=== PATIENT | female | born 1980 | race Native Hawaiian/Other Pacific Islander ===

== ENCOUNTER 2016-11-15 11:11 | Emergency (ER) | payer OTHER ==
[2016-11-15 11:15] VITALS: BMI 30.7
[2016-11-15 11:17] VITALS: PULSE 66; TEMP 98.5; O2SAT 99
[2016-11-15 11:25] VITALS: BP 118/70; RESP 20
--- NOTE | 2016-11-15 11:31 | ED PDOC ---
HPI: Female Pain Time Seen by Provider: 11/15/16 11:31 Chief Complaint (Nursing): Female Genitourinary Chief Complaint (Provider): with spotting History Per: Patient Additional Complaint(s): 36-year-old female presents to emergency department for evaluation of vaginal spotting that started yesterday. Patient is currently and she is approximately 10 weeks. Yesterday patient took her first yoga class and noticed slight spotting right after the class with no pain. Patient had additional episode of spotting last night and thrn woke up this morning with additional spotting. Patient called her education coordinator and was told to come to ED. Patient denies abdominal pain, no fever or chills, no dysuria or hematuria. This is patient's first , she has no children and she denies any previous miscarriages or ectopic pregnancies. Past Medical History Reviewed: Historical Data, Nursing Documentation, Vital Signs Vital Signs: Last Vital Signs Temp 98.5 F 11/15/16 11:23 Pulse 66 11/15/16 11:23 Resp 20 11/15/16 11:23 BP 118/70 11/15/16 11:23 Pulse Ox 99 11/15/16 11:23 - Medical History PMH: No Chronic Diseases Other PMH: - Surgical History Surgical History: No Surg Hx - Family History Family History: States: No Known Family Hx - Living Arrangements Living Arrangements: With Family - Social History Current smoker - smoking cessation education provided: No Alcohol: None Drugs: Denies - Home Medications Home Medications: Ambulatory Orders Medication Instructions Recorded Omeprazole [Omeprazole] 40 mg PO DAILY 08/18/13 Famotidine [Pepcid] 20 mg PO BID #28 tab 08/19/13 - Allergies Allergies/Adverse Reactions: Allergies Allergy/AdvReac Type Severity Reaction Status Date / Time No Known Allergies Allergy Verified 11/15/16 11:22 Review of Systems ROS Statement: Except As Marked, All Systems Reviewed And Found Negative Constitutional: Negative for: Fever Gastrointestinal: Negative for: Nausea, Vomiting Genitourinary Female: Positive for: Vaginal Bleeding (spotting since last night with no pain, currently 10 weeks ) Physical Exam - Reviewed Nursing Documentation Reviewed: Yes Vital Signs Reviewed: Yes - Physical Exam Appears: Positive for: Well Skin: Negative for: Rash Eye Exam: Positive for: Normal appearance Cardiovascular/Chest: Positive for: Regular Rate, Rhythm Respiratory: Positive for: Normal Breath Sounds Gastrointestinal/Abdominal: Positive for: Normal Exam, Soft. Negative for: Tenderness, Distended, Guarding, Rebound Back: Negative for: L CVA Tenderness, R CVA Tenderness Extremity: Positive for: Normal ROM. Negative for: Pedal Edema Neurologic/Psych: Positive for: Alert, Oriented - Laboratory Results Result Diagrams: 11/15/16 12:15 11/15/16 12:15 Urine POC: Positive Urine dip results: Positive for: Blood (small). Negative for: Leukocyte Esterase, Nitrate, Ketones, Glucose, Bilirubin, Protein - ECG O2 Sat by Pulse Oximetry: 99 Pulse Ox Interpretation: Normal - Other Rad OB US X-Ray: Read By Radiologist X-Ray Interpretation: see below Medical Decision Making Medical Decision Makin36 year old female, currently 10 weeks with vaginal spotting since yesterday Plan: CBC CMP Beta quant TV OB US Urine dip OB is Dr. Pierce, who is aware that patient is in ED. Patient's blood type is B+ as per labs obtained in Dr. Pierce's office at end of October. US: IMPRESSION: Single live intrauterine gestation of approximately 10 weeks 0 days gestational age. No subchorionic hemorrhage. Two small posterior uterine fibroids. Cervix closed. Otherwise unremarkable, FHR 168. Patient is aware of diagnostic testing results, all questions answered. Case was further discussed with Dr. Pierce who is aware of ultrasound results and states to discharge patient and have her follow-up in his office in 1-2 days. Patient was advised to get plenty of rest and avoid shiny with activity. She was instructed to follow up in 1-[address] Pierce in his office and is aware she can return to ED any time if acutely worse. Disposition - Clinical Impression Clinical Impression: Threatened - Patient ED Disposition Is Patient to be Admitted: No Counseled Patient/Family Regarding: Studies Performed, Diagnosis, Need For Followup - Disposition Referrals: Gil Pierce DO [Family Provider] - Disposition: Routine/Home Disposition Time: 13:51 Condition: STABLE Additional Instructions: Rest as much possible and drink plenty of fluids. No heavy lifting or strenuous activity. Refrain from intercourse. Follow-up in one to [address] Pierce or return any time if acutely worse. Instructions: Threatened Miscarriage (ED) Results - Lab Results Lab Results: 11/15/16 11/15/16 12:15 12:15 WBC 8.2 RBC 5.24 H Hgb 15.5 Hct 45.9 MCV 87.7 MCH 29.5 MCHC 33.6 RDW 13.7 Plt Count 216 MPV 8.7 Neut % (Auto) 66.4 Lymph % (Auto) 23.6 Tillman % (Auto) 7.8 Eos % (Auto) 1.4 Baso % (Auto) 0.8 Neut # 5.4 Lymph # 1.9 Tillman # 0.6 Eos # 0.1 Baso # 0.1 Sodium 142 Potassium 4.3 Chloride 105 Carbon Dioxide 24 Anion Gap 18 BUN 6 L Creatinine 0.5 L Est GFR ( Amer) > 60 Est GFR (Non-Af Amer) > 60 Random Glucose 82 Calcium 9.9 Total Bilirubin 0.5 AST 22 ALT 26 Alkaline Phosphatase 49 Total Protein 8.2 Albumin 4.8 Globulin 3.4 Albumin/Globulin Ratio 1.4 Beta HCG, Quant > 92183.00
[2016-11-15 12:27] LABS: BASO # 0.1 K/uL (0.0-0.2); BASO % 0.8 % (0.0-2.0); EOS # 0.1 K/uL (0.0-0.7); EOS % 1.4 % (0.0-4.0); HEMATOCRIT 45.9 % (34.0-47.0); LYMPH # 1.9 K/uL (1.0-4.3); LYMPH % 23.6 % (20.0-40.0); MEAN CELL VOLUME 87.7 fl (81.0-99.0); MEAN CORPUSCULAR HEMOGLOBIN 29.5 pg (27.0-31.0); MEAN CORPUSCULAR HGB CONC 33.6 g/dL (33.0-37.0); MEAN PLATELET VOLUME 8.7 fl (7.2-11.7); MONO # 0.6 K/uL (0.0-0.8); MONO % 7.8 % (0.0-10.0); NEUT # 5.4 K/uL (1.8-7.0); NEUT % 66.4 % (50.0-75.0); RED CELL DISTRIBUTION WIDTH 13.7 % (11.5-14.5); WHITE BLOOD COUNT 8.2 K/uL (4.8-10.8)
[2016-11-15 12:40] LABS: ALB/GLOB RATIO 1.4 (1.0-2.1); ALKALINE PHOSPHATASE 49 U/L (38-126); ALT/SGPT 26 U/L (9-52); AST/SGOT 22 U/L (14-36); BILIRUBIN,TOTAL 0.5 mg/dl (0.2-1.3); BLOOD UREA NITROGEN 6 mg/dl (7-17); CALCIUM 9.9 mg/dL (8.4-10.2); CARBON DIOXIDE 24 mmol/L (22-30); CHLORIDE 105 mmol/L (98-107); GFR AFRICAN-AMERICAN > 60; GLUCOSE,RANDOM 82 mg/dL (65-105); POTASSIUM 4.3 MMOL/L (3.6-5.0); SODIUM 142 mmol/l (132-148); TOTAL PROTEIN 8.2 G/DL (6.3-8.2)
--- NOTE | 2016-11-15 13:51 | US ---
PROCEDURE: OB Pelvic Ultrasound HISTORY: 10 weeks, spotting COMPARISON: None available. FINDINGS: UTERUS: Single Live intrauterine gestation. CRL equivalent to 10 weeks 4 days gestatioin Gestational sac diameter equivalent to 9 weeks 2 days gestation age (Ultrasound estimated): 10 weeks 0 days Date of delivery (Ultrasound estimated) : 06/13/2017 Heart rate: 168 bpm. Josefa-gestational hemorrhage: None. 5 mm yolk sac. Uterus measures 12.0 x 7.0 x 9.2 cm. Two posterior intramural fibroids, 1.1 x 1.0 x 0.8 cm and 2.0 x 1.7 x 1.7 Cm. CERVIX: Long and closed. No cervical abnormality seen. RIGHT OVARY: Not visualized. LEFT OVARY: Measures 3.3 x 1.8 x 2.4 cm. No mass. Normal flow. FREE FLUID: None. OTHER FINDINGS: None. IMPRESSION: Single live intrauterine gestation of approximately 10 weeks 0 days gestational age. No subchorionic hemorrhage. Two small posterior uterine fibroids. Cervix closed. Otherwise unremarkable.
== END 2016-11-15 14:14 | disposition home or self-care (01) ==
LOC: H.ER 11:11
DX: O26.853 Spotting complicating pregnancy, third trimester (principal); Z3A.10 10 weeks gestation of pregnancy; D25.9 Leiomyoma of uterus, unspecified

== ENCOUNTER → 2017-04-06 | Emergency (ER) | payer OTHER ==
[~2017-04-06] MED LIST: Alum-Mag Hydrox-Simethicone Susp (30 mL) PO ONE
[2017-04-06 16:34] VITALS: BMI 32.4
[2017-04-06 17:01] LABS: HEMATOCRIT 40.5 % (34.0-47.0); MEAN CELL VOLUME 89.2 fl (81.0-99.0); MEAN CORPUSCULAR HEMOGLOBIN 29.5 pg (27.0-31.0); MEAN CORPUSCULAR HGB CONC 33.1 g/dL (33.0-37.0); RED CELL DISTRIBUTION WIDTH 13.6 % (11.5-14.5); WHITE BLOOD COUNT 11.8 K/uL (4.8-10.8)
[2017-04-06 17:16] LABS: ALB/GLOB RATIO 1.3 (1.0-2.1); ALKALINE PHOSPHATASE 76 U/L (38-126); ALT/SGPT 23 U/L (9-52); AST/SGOT 16 U/L (14-36); BILIRUBIN,TOTAL 0.3 mg/dl (0.2-1.3); BLOOD UREA NITROGEN 6 mg/dl (7-17); CALCIUM 9.3 mg/dL (8.4-10.2); CARBON DIOXIDE 21 mmol/L (22-30); CHLORIDE 107 mmol/L (98-107); GFR AFRICAN-AMERICAN > 60; GLUCOSE,RANDOM 99 mg/dL (65-105); POTASSIUM 3.9 MMOL/L (3.6-5.0); SODIUM 139 mmol/l (132-148); TOTAL PROTEIN 7.2 G/DL (6.3-8.2)
== END | disposition home or self-care (01) ==
LOC: H.EROB2 15:54
DX: O99.613 Diseases of the digestive system complicating pregnancy, third trimester (principal); K21.9 Gastro-esophageal reflux disease without esophagitis; Z3A.31 31 weeks gestation of pregnancy

== ENCOUNTER 2017-05-28 00:21 | Inpatient (IN) | payer OTHER ==
[2017-05-28 01:23] VITALS: BMI 32.9
[2017-05-28] MEDS: Lactated Ringer's 1,000 ML IV SCH ×3 (01:30→12:30)
[2017-05-28] MEDS ORDERED: Penicillin G Potassium 5 MU in Sodium Chloride 0.9% 50 ML IVPB ONE (01:30)
[2017-05-28 01:46] LABS: BASO # 0.1 K/uL (0.0-0.2); BASO % 0.6 % (0.0-2.0); EOS # 0.1 K/uL (0.0-0.7); EOS % 1.3 % (0.0-4.0); HEMATOCRIT 42.4 % (34.0-47.0); MEAN CELL VOLUME 88.9 fl (81.0-99.0); MEAN CORPUSCULAR HEMOGLOBIN 30.2 pg (27.0-31.0); MEAN PLATELET VOLUME 9.5 fl (7.2-11.7); MONO # 0.6 K/uL (0.0-0.8); MONO % 6.1 % (0.0-10.0); NEUT # 6.8 K/uL (1.8-7.0); NRBC % 0.1 % (0.0-0.0); RED CELL DISTRIBUTION WIDTH 13.8 % (11.5-14.5); WHITE BLOOD COUNT 9.5 K/uL (4.8-10.8)
[2017-05-28] MEDS ORDERED: Oxytocin 30 UNITS in Sodium Chloride 0.9% 500 ML IV ONE ×3 (06:00→17:30)
[2017-05-28] MEDS ORDERED: Bupivacaine HCl 0.25% PF (10 ml) Inj ONE ×2 (10:04→14:33)
[2017-05-28] MEDS ORDERED: Fentanyl/Bupivacaine HCl 250 ML EPI ONE (10:04)
--- NOTE | 2017-05-28 12:28 | OBPN ---
Datetime: 05/28/2017 11:24 IP Progress Impression: Normal progression of labor; Reassuring heart rate IP Procedures: Sterile Vag Exam IP Progress Plan: Continue present management; Augmentation Membranes, Provider: Ruptured Contraction Comments Provider: q3min FHR - Baseline A Provider: 130s-140s IP Progress Note Comment: Pt comfortable s/p epidural. Both MWB/FWB reassuring at this time. Cont current management. Vital Signs Provider: Reviewed; Within Normal Limits NICHD Accel Fetus A IP Provider: 15X15 FHR Category Provider Fetus A: Category I NICHD Variability Prov Fetus A: Moderate 6-25bpm Dilatation, Provider: 3-4 Effacement, Provider: 100 Station, Provider: -2 NICHD Decel Fetus A IP Provider: None
--- NOTE | 2017-05-28 12:30 | OBADHP ---
Datetime: 05/28/2017 11:24 FHR - Baseline A Provider: 130s-140s RAMBO Variability Prov Fetus A: Moderate 6-25bpm NICHD Accel Fetus A IP Provider: 15X15 FHR Category Provider Fetus A: Category I NICHD Decel Fetus A IP Provider: None Datetime: 05/28/2017 03:27 Pelvic Type - PN: Adequate Extremities - PN: Normal Abdomen - PN: Normal Back - PN: Normal Breast - PN: Normal Lungs - PN: Normal Heart - PN: Normal Thyroid - PN: Normal Neurologic - PN: Normal HEENT - PN: Normal General - PN: Normal Amniotic Fluid Color, Provider: Clear Membranes, Provider: Ruptured Contraction Comments Provider: irregular pattern Comments, ACOG Physical Exam: cephalic via exam EFW 7.5lbs Pool Provider: Positive Vital Signs Provider: Reviewed; Within Normal Limits IP Chief Complaint: Uterine contractions; Suspected ruptured membranes Dilatation, Provider: 1 Effacement, Provider: 90 Station, Provider: -3 Genitourinary Exam: Normal DTRs - PN: Normal EGA AdmitDate IP: 38.2 IP Adm Impression: Term, intrauterine ; No Active Labor; Ruptured Membranes IP Admit Plan: Admit to unit; Initiate labor protocol Datetime: 04/06/2017 16:14 Admit Comment, IP Provider: 36-year-old at 31 weeks gestational age presents to OB ED complain ing of heartburn and mild epigastric tenderness. She denies any contractions, vaginal bleeding, leaka ge of fluids. Patient reports good movement. Patient denies any chest pain or shortness of rudolph th, nausea or vomiting, lightheadedness or dizziness. Past medical history none Past surgical history none Medications vitamins No known drug allergies Obstetrical history Social history no tobacco, no drugs, no alcohol Physical exam: Referred physical exam findings Labs: Referred to results Assessment: 36-year-old at 31 weeks gestational age with GERD, patient symptoms resolved after administr ation of antacid. Both maternal well-being and well-being reassuring at this time. Plan: Discharge home with labor precautions. Patient will follow up in office as already schedul ed. IP Hx Assessment: The History has been Reviewed and is Current
--- NOTE | 2017-05-28 12:58 | OBADHP ---
Datetime: 05/28/2017 03:27 Admit Comment, IP Provider: 37yo with c/o gush of fluid at 230am. +mild ctxs. No VB. Good FM . records reviewed. Otherwise patient without complaints PMHx none PSHx none Meds PNV NKDA OBHx SocHx No tob, etoh, drugs PE refer to PE findings A-- SROM, GBS positive P-- Admit for management of labor and delivery. IV abx for GBS proph. Consider pitocin augmentat ion if indicated. Both MWB/FWB reassuring at this time. FHR - Baseline A Provider: 130s-140s Comments, ACOG Physical Exam: grossly ruptured on exam cephalic via exam EFW 7.5lbs NICHD Variability Prov Fetus A: Moderate 6-25bpm NICHD Accel Fetus A IP Provider: 15X15 FHR Category Provider Fetus A: Category I NICHD Decel Fetus A IP Provider: None EGA AdmitDate IP: 38.2
--- NOTE | 2017-05-28 14:18 | OBPN ---
Datetime: 05/28/2017 14:16 IP Progress Impression: Reassuring heart rate IP Procedures: Sterile Vag Exam IP Progress Plan: Continue present management; Augmentation Contraction Comments Provider: q3min FHR - Baseline A Provider: 140s-150s IP Progress Note Comment: Both MWB/FWB reassuring at this time. Cont current management Vital Signs Provider: Reviewed; Within Normal Limits NICHD Accel Fetus A IP Provider: 15X15 NICHD Variability Prov Fetus A: Moderate 6-25bpm Dilatation, Provider: 5 Effacement, Provider: 100 Station, Provider: -2 NICHD Decel Fetus A IP Provider: None Datetime: 05/28/2017 03:27 Pool Provider: Positive Membranes, Provider: Ruptured Amniotic Fluid Color, Provider: Clear FHR Category Provider Fetus A: Category I
[2017-05-28] MEDS ORDERED: Lidocaine 1% Inj (20ml) ONE (15:14)
--- NOTE | 2017-05-28 16:43 | OBPN ---
Datetime: 05/28/2017 16:41 IP Progress Impression: Reassuring heart rate IP Procedures: Sterile Vag Exam IP Progress Plan: Continue present management; Augmentation FHR - Baseline A Provider: 150s IP Progress Note Comment: Continue current management. Both MWB/FWB reassuring at this time. Vital Signs Provider: Reviewed; Within Normal Limits NICHD Variability Prov Fetus A: Moderate 6-25bpm Dilatation, Provider: 5 Effacement, Provider: 100 Station, Provider: -2 NICHD Decel Fetus A IP Provider: None
[2017-05-28] MEDS ORDERED: ceFAZolin IV 2 gm in Dextrose 2 GM/50 ML BAG IVPB ONE ×2 (17:01→17:06)
--- NOTE | 2017-05-28 17:09 | OBPN ---
Datetime: 05/28/2017 17:06 IP Progress Impression: Arrest of dilatation/descent; Non-reassuring heart rate IP Informed Consent Obtain: Section Delivery; Risks, Benefits and Alternatives Discussed IP Procedures: Sterile Vag Exam IP Progress Plan: Deliver- Section Contraction Comments Provider: q2min FHR - Baseline A Provider: 160s IP Progress Note Comment: Pt with no progress in 4 hours. Also with FHT with decreasing variability and variable decelerations. Discussed options with patient and recommended C/S delivery due to arre st of labor and persistent tachycardia and with variable decelerations. All patient questions answer ed and patient consented for C/S. Anesthesia notified. Vital Signs Provider: Reviewed; Within Normal Limits NICHD Variability Prov Fetus A: Minimal - Undetectable to <5bpm Dilatation, Provider: 5 Effacement, Provider: 100 Station, Provider: -2 NICHD Decel Fetus A IP Provider: Variable
[2017-05-28] MEDS ORDERED: Morphine 5 mg/10 ml preservative-free Inj(Duramorph) ONE (17:24)
--- NOTE | 2017-05-28 19:30 | OBDS ---
DELIVERY PERSONNEL Delivery Doctor: Kurt Morse MD Scrub Nurse: murtaza tidwell obt Studio Technician: Josselin Franklin RNC / saurabh menjivar rnc Anesthesiologist: Myron Swenson MD MATERNAL INFORMATION Estimated Blood Loss (ml): 800 Placenta Cultured: No Provider Comments: Primary LFT C/S. Pt delivered viable female with Apgars 9/9. Normal uterus, normal tubes and ovaries bilaterally. EBL 800cc IVF 1600cc LR UO 150cc clear No complications. Pt tolerated procedure well. LABOR SUMMARY EDC: 06/09/2017 00:00 No. Babies in Womb: 1 Attempted: No LABOR INFORMATION Reason for Induction: Not Applicable Group B Beta Strep: Positive Steroids Given: None Reason Steroids Not Administered: Not Applicable MEMBRANES Membranes Rupture Method: Spontaneous Rupture of Membranes: 05/27/2017 23:30 Length of Rupture (hrs): 18.27 Amniotic Fluid Color: Clear Amniotic Fluid Amount: Moderate Amniotic Fluid Odor: Normal STAGES OF LABOR Stage 3 hrs: 0 Stage 3 min: 1 CSECTION DELIVERY Primary Indication: Prolonged Active Phase Secondary Indication: Nonreassuring Status CSection Urgency: Non Elective CSection Incidence: Primary Labor: Labor Elective: Nonelective CSection Incision: Lower Uterine Transverse Uterine Closure: Double-layer closure BABY A INFORMATION Infant Delivery Date/Time: 05/28/2017 17:46 Method of Delivery: Born in Route : No : N/A Forceps: N/A Vacuum Extraction: N/A Shoulder Dystocia : No SHOULDER DYSTOCIA BABY A Delivery Date/Time: 05/28/2017 17:46 PRESENTATION/POSITION BABY A Presentation: Cephalic Cephalic Presentation: Vertex Breech Presentation: N/A PLACENTA INFORMATION BABY A Placenta Delivery Time : 05/28/2017 17:47 Placenta Method of Delivery: Manual Removal SCORES BABY A Heart Rate 1 min: >100 bpm Resp Effort 1 min: Good Cry Reflex Irritability 1 min: Cough or Sneeze or Pulls Away Muscle Tone 1 min: Active Motion Color 1 min: Body [place], Extremities Blue Resuscitation Effort 1 min: Tactile Stimulation SCORE 1 MIN: 9 Heart Rate 5 min: >100 bpm Resp Effort 5 min: Good Cry Reflex Irritability 5 min: Cough or Sneeze or Pulls Away Muscle Tone 5 min: Active Motion Color 5 min: Body [place], Extremities Blue SCORE 5 MIN: 9 Heart Rate 10 min: >100 bpm Resp Effort 10 min: Good Cry Reflex Irritability 10 min: Cough or Sneeze or Pulls Away Muscle Tone 10 min: Active Motion Color 10 min: Body [place], Extremities Blue SCORE 10 MIN: 9 INFORMATION BABY A Gestational Age at Delivery: 38+2 Gestational Status: Term Outcome : Liveborn Infant Condition : Stable Infant Sex: Female IDENTIFICATION/MEDS BABY A ID Band Number: [id number] WEIGHT/LENGTH BABY A Birthweight (gms): 3000 Infant Weight (lb): 6 Weight (oz): 10 CORD INFORMATION BABY A No. Cord Vessels: 3 Nuchal Cord : N/A Cord pH Baby Arterial: yes Infant Cord pH Baby Venous: yes Cord Blood Taken: Yes Banking/Donate Info: no Suction: Mouth; Nose
[2017-05-28] MEDS ORDERED: DiphenhydrAMINE 50 mg/ml Inj IVP PRN ×2 (19:35→22:48)
[2017-05-28] MEDS ORDERED: Lactated Ringer's 1,000 ML IV SCH (22:48)
[2017-05-29 06:18] LABS: MEAN CELL VOLUME 88.2 fl (81.0-99.0); MEAN CORPUSCULAR HEMOGLOBIN 29.8 pg (27.0-31.0); MEAN CORPUSCULAR HGB CONC 33.8 g/dL (33.0-37.0); RED CELL DISTRIBUTION WIDTH 13.4 % (11.5-14.5); WHITE BLOOD COUNT 15.6 K/uL (4.8-10.8)
[2017-05-29] MEDS ORDERED: Oxycodone/Acetaminophen 5/325 mg Tab PO PRN (09:29)
--- NOTE | 2017-05-29 11:26 | OBPPN ---
Datetime: 05/29/2017 11:19 PP Pain Prov: Within normal limits PP Nausea Prov: Denies PP Flatus Prov: Yes PP Breasts Prov: Normal PP Heart Prov: Normal PP Lungs Prov: Normal PP Abdomen/Uterus Prov: Normal PP Lochia Prov: Normal PP Vulva/Perineum Prov: Normal PP CVA Tenderness Prov: Normal PP Extremities Prov: Normal PP Comments Phys Exam Prov: Fundus firm under umbilicus PP Impression Prov: Normal progression PP Plan Prov: Continue present management PP Progress Note Prov: Patient denies CP, no SOB, no N/V, tolerating PO diet, abulating/voiding well , mild lochia, abdominal pain tolerable with meds, +flatus, no BM A/P POD #1 1. Reg diet 2. Motrin/Percocet prn pain 3. Colace prn constipation 4. Encourage ambulation/ IP PP Procedures: None Vital Signs Provider PP: Reviewed; Within Normal Limits
--- NOTE | 2017-05-30 08:39 | OBPPN ---
Datetime: 05/30/2017 08:34 PP Pain Prov: Within normal limits PP Nausea Prov: Denies PP Flatus Prov: Yes PP BM Prov: No PP Abdomen/Uterus Prov: Normal PP Lochia Prov: Normal PP Extremities Prov: Normal PP C/S Incision Prov: Normal PP Progress Prov: Normal PP Comments Phys Exam Prov: Incision: intact w/ steri strips PP Impression Prov: Normal progression PP Plan Prov: Continue present management PP Progress Note Prov: POD 1 s/p c/s, c/o pain, just received motrin Ordered bowel regimen and encouraged ambulation Vital Signs Provider PP: Reviewed
[2017-05-30] MEDS: Simethicone 80 mg Chewtab PO SCH ×3 (09:07→21:39)
[2017-05-31] MEDS: Simethicone 80 mg Chewtab PO SCH (06:04)
--- NOTE | 2017-05-31 12:00 | OBPPN ---
Datetime: 05/31/2017 11:58 PP Pain Prov: Within normal limits PP Nausea Prov: Denies PP Flatus Prov: Yes PP Breasts Prov: Not Done PP Heart Prov: Normal PP Lungs Prov: Normal PP Abdomen/Uterus Prov: Not Done PP Lochia Prov: Not Done PP Vulva/Perineum Prov: Not Done PP CVA Tenderness Prov: Normal PP Extremities Prov: Normal PP C/S Incision Prov: Normal PP Progress Prov: Normal PP Impression Prov: Normal progression PP Plan Prov: Continue present management PP Progress Note Prov: Patient doing well pain well controlled Vital signs stable afebrile Uterus firm below the umbilicus Incision clean dry and intact Postoperative day #2 Ambulation, regular diet, analgesics as needed Vital Signs Provider PP: Reviewed
[2017-05-31 19:37] VITALS: BP 102/63; PULSE 81; RESP 18; TEMP 98.1; O2SAT 98
== END 2017-05-31 15:05 | disposition home or self-care (01) | DRG 766 ==
LOC: H.EROB2 00:21 → H.L&D 01:15 → H.OB/GYN 22:41
PROVIDERS: ADMIT Obstetrics & Gynecology; ATTEND Obstetrics & Gynecology
PROC: 10D00Z1 Extraction of Products of Conception, Low, Open Approach (ICD-10-PCS; principal; 2017-05-28)
PROC: 4A0HXCZ Measurement of Products of Conception, Cardiac Rate, External Approach (ICD-10-PCS; 2017-05-28)
DX: O76 Abnormality in fetal heart rate and rhythm complicating labor and delivery (principal); O63.1 Prolonged second stage (of labor); K21.9 Gastro-esophageal reflux disease without esophagitis; O99.62 Diseases of the digestive system complicating childbirth; O62.0 Primary inadequate contractions; Z37.0 Single live birth; O99.824 Streptococcus B carrier state complicating childbirth; Z3A.38 38 weeks gestation of pregnancy; O09.523 Supervision of elderly multigravida, third trimester